=== PATIENT | male | born 1995 | race African-American/Black ===

== ENCOUNTER 2018-03-19 08:23 | Emergency (ER) | payer SELFPAY | END 2018-03-19 09:11 | disposition home or self-care (01) | LOC: ERS 08:23 | DX: K03.81 Cracked tooth (principal); K02.9 Dental caries, unspecified; F17.210 Nicotine dependence, cigarettes, uncomplicated | CPT/HCPCS: 99282 ==

== ENCOUNTER 2018-12-14 12:43 | Emergency (ER) | payer BC, SELFPAY | END 2018-12-14 13:25 | disposition home or self-care (01) | LOC: ERS 12:43 | DX: K03.81 Cracked tooth (principal); K02.9 Dental caries, unspecified; F17.210 Nicotine dependence, cigarettes, uncomplicated; Z71.6 Tobacco abuse counseling | CPT/HCPCS: 99406 ==

== ENCOUNTER 2020-02-07 22:11 | Emergency (ER) | payer BC, SELFPAY | END 2020-02-07 23:23 | disposition home or self-care (01) | LOC: ERS 22:11 | DX: K04.7 Periapical abscess without sinus (principal); K02.9 Dental caries, unspecified; K03.81 Cracked tooth; F17.210 Nicotine dependence, cigarettes, uncomplicated | CPT/HCPCS: 41800 ==